=== PATIENT | male | born 1940 | race Caucasian/White ===

== ENCOUNTER 2019-11-22 08:26 | Inpatient (IN) | payer MEDICARE ==
[~2019-11-22] VITALS: Ht 172.7 cm; Wt 100.0 kg
[2019-11-22] VITALS (7 sets, daily range): BP systolic 95–116; BP diastolic 56–88; Ht 172.7 cm; Wt 100.0 kg
[2019-11-22] MEDS ORDERED: ZYLOPRIM100 MG PO (08:32)
[2019-11-22] MEDS ORDERED: ASPIRIN325 MG PO (08:33)
--- NOTE | 2019-11-22 08:45 | NUR ---
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
[2019-11-22 09:34] LABS: HEMATOCRIT 41.5 % (42.0-54.0); HEMOGLOBIN 13.8 g/dL (13.5-17.5); MCH 31.3 pg (26.0-34.0); MCHC 33.3 g/dL (31.0-37.0); MCV 94.1 fL (80.0-100.0); MEAN PLATELET VOLUME 8.8 fL (7.4-10.4); PLATELET COUNT 231 10x3/uL (130-400); RBC 4.41 10x6/uL (4.20-6.10); RDW 13.5 % (11.5-14.5)
[2019-11-22 09:40] LABS: APTT 27.2 SECONDS (22.8-39.4); CALC OSMOLALITY 286 mosm/kg (275-300); CALCIUM 9.3 mg/dL (8.5-10.1); CHLORIDE - SERUM 101 mmol/L (98-107); CREATININE - SERUM 1.6 mg/dL (0.6-1.3); GLUCOSE 198 mg/dL (74-106); INR 1.17 (0.85-1.17); POTASSIUM - SERUM 4.6 mmol/L (3.5-5.1); PROTIME 14.4 SECONDS (11.6-15.0); SODIUM 139 mmol/L (136-145); UREA NITROGEN 21 mg/dL (7-18); eGFR NON AFRICAN AMERICAN 44 mL/min (90-120)
--- NOTE | 2019-11-22 09:45 | NUR ---
LAB AT BS FOR 'S X2
[2019-11-22 09:55] LABS: ALBUMIN 3.5 g/dL (3.4-5.0); ALKALINE PHOSPHATASE 86 U/L (46-116); ALT (SGPT) 53 U/L (10-68); BILIRUBIN - TOTAL 0.94 mg/dL (0.2-1.3); CKMB 0.7 U/L (0.0-3.6); CREATINE KINASE 71 UL (21-232); PROTEIN - SERUM 6.6 g/dL (6.4-8.2)
[2019-11-22 09:56] LABS: TROPONIN-I < 0.017 ng/mL (0.000-0.060)
[2019-11-22 10:36] LABS: EOSINOPHILS 1 % (0-7); LYMPHOCYTES 11 % (15-50); MONOCYTES 9 % (2-11); NEUTROPHILS 77 % (40-80); PLATELET ESTIMATE NORMAL
--- NOTE | 2019-11-22 10:47 | NUR ---
REPORT CALLED TO NAS MARKS
--- NOTE | 2019-11-22 10:55 | NUR ---
TRANSPORTED TO ROOM #2223, CONDITION STABLE. AZITHROMYCIN INFUSING UPON TRANSPORT TO ROOM
--- NOTE | 2019-11-22 13:08 | NUR ---
RECEIVED PT FROM ER, PT IS ALERT AND ORIENTED, SPOUSE AT BEDSIDE, STATES PAIN IS AT A 9 WHERE RIBS ARE. BED IN LOWEST POSITION, CL IN REACH CONTINUE WITH PLAN OF CARE
--- NOTE | 2019-11-22 16:39 | NUR ---
ASSISTED PT TO RESTROOM, PT C/O PAIN ON LEFT LOWER SIDE TOWARDS BACK AREA, ENCOURAGED PT TO PUSH PAIN BUTTON WHEN GREEN. 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 PT IS 1M PERSON ASSIST. NO OTHER NEEDS VOICED NO SIGNS OF DISTRESS, CONTINUE WITH PLAN OF CARE
[2019-11-22 16:40] LABS: % SATURATION 19 % (15-55); IRON 57 ug/dl (35-150); TOTAL IRON BIND CAPACITY 294 ug/dl (260-445); UNSAT IRON BIND CAPACITY 237 ug/dl (150-375)
[2019-11-23 01:58] VITALS: BP 138/79
[2019-11-23 06:15] LABS: BASOPHILS 0 % (0-2); EOSINOPHILS 0 % (0-7); HEMATOCRIT 37.2 % (42.0-54.0); HEMOGLOBIN 12.3 g/dL (13.5-17.5); IMMATURE GRANULOCYTES 0.2 % (0-5); MCH 30.8 pg (26.0-34.0); MCHC 33.1 g/dL (31.0-37.0); MEAN PLATELET VOLUME 9.1 fL (7.4-10.4); NEUTROPHILS 88.8 % (40-80); PLATELET COUNT 185 10x3/uL (130-400); RDW 13.5 % (11.5-14.5); WBC 20.1 10x3/uL (4.8-10.8)
[2019-11-23 06:27] LABS: ALBUMIN 3.4 g/dL (3.4-5.0); ANION GAP 12.6 mmol/L (8-16); BILIRUBIN - TOTAL 0.58 mg/dL (0.2-1.3); CARBON DIOXIDE 26.2 mmol/L (21.0-32.0); CREATININE - SERUM 1.7 mg/dL (0.6-1.3); MAGNESIUM - SERUM 2.1 mg/dL (1.8-2.4); POTASSIUM - SERUM 4.8 mmol/L (3.5-5.1); PROTEIN - SERUM 6.3 g/dL (6.4-8.2)
--- NOTE | 2019-11-23 08:11 | NUR ---
ALERT AND ORIENTED. LUNGS DIMINISHED TO BLL. HEART SOUNDS S1 AND S2 HEARD IN ALL SMITH. BOWEL SOUNDS ACTIVE X 4. SKIN INTACT WITHOUT REDNESS. IV TO LEE PATENT WITHOUT REDNESS. DENIES NEEDS. BED LOW. FALL PRECAUTIONS IN PLACE. CALL REYES AND ITEMS IN REACH. WILL CONTINUE TO MONITOR.
[2019-11-23 08:16] LABS: APPEARANCE CLEAR (CLEAR); BILIRUBIN NEGATIVE (NEGATIVE); COLOR YELLOW (YELLOW); GLUCOSE NEGATIVE (NEGATIVE); KETONE MODERATE mg/dL (NEGATIVE); NITRITE NEGATIVE (NEGATIVE); PROTEIN NEGATIVE (NEGATIVE); SPECIFIC GRAVITY 1.025 (1.005-1.020); UROBILINOGEN NORMAL (NORMAL)
[2019-11-23 08:47] VITALS: BP 125/74
--- NOTE | 2019-11-23 09:53 | NUR ---
RESTING IN BED. AT BEDSIDE. WILL CONTINUE TO MONITOR.
--- NOTE | 2019-11-23 11:13 | NUR ---
BED ALARM REFUSAL SIGNED BY PATIENT. AT BEDSIDE. ALARM REMOVED FROM BED.
[2019-11-23 11:37] VITALS: BP 133/75
--- NOTE | 2019-11-23 13:56 | NUR ---
RESTING IN BED. AT BEDSIDE. WILL CONTINUE TO MONITOR.
[2019-11-23 17:29] VITALS: BP 119/80
--- NOTE | 2019-11-23 17:39 | NUR ---
FAMILY IN ROOM. PATIENT NOT HUNGRY. CL IN REACH. NO NEEDS AT THIS TIME.
[2019-11-24] VITALS: BP 123/62
--- NOTE | 2019-11-24 00:27 | NUR ---
PT RESTING IN BED. EYES CLOSED. NO SIGNS OF DISTRESS. BREATHING EVEN AND UNLABORED. IV SITE RT UPPER ARM SL. DRESSING CLEAN DRY AND INTACT. NO SIGNS OF INFECTION. AT BEDSIDE. 2LO2 NASAL CANNULA. LUNG SOUNDS DIMINISHED IN LT LOWER LUNG. LT SIDE LOWER BACK BRUISES. BOWEL SOUNDS ACTIVE. ABD DISTENDED. NO LOWER LEG SWELLING PRESENT. WILL CONTINUE PLAN OF CARE. CALL LIGHT IN REACH. BED LOWERED AND LOCKED. PT REFUSAL OF GIGI OR BED ALARM. YELLOW GOWN ON.
[2019-11-24 06:51] LABS: ANION GAP 10.7 mmol/L (8-16); CALCIUM 9.1 mg/dL (8.5-10.1); CARBON DIOXIDE 27.5 mmol/L (21.0-32.0); MAGNESIUM - SERUM 2.3 mg/dL (1.8-2.4); POTASSIUM - SERUM 4.2 mmol/L (3.5-5.1)
[2019-11-24 06:52] LABS: CREATININE - SERUM 1.2 mg/dL (0.6-1.3)
[2019-11-24 07:31] LABS: BASOPHILS 0.1 % (0-2); EOSINOPHILS 0.3 % (0-7); IMMATURE GRANULOCYTES 0.3 % (0-5); LYMPHOCYTES 6.1 % (15-50); MCH 31.3 pg (26.0-34.0); MCHC 33.3 g/dL (31.0-37.0); MEAN PLATELET VOLUME 9.1 fL (7.4-10.4); MONOCYTES 6.3 % (2-11); NEUTROPHILS 86.9 % (40-80); PLATELET COUNT 165 10x3/uL (130-400); RBC 3.51 10x6/uL (4.20-6.10); RDW 13.8 % (11.5-14.5); WBC 19.3 10x3/uL (4.8-10.8)
--- NOTE | 2019-11-24 07:50 | NUR ---
RESTING IN BED. REQUESTED AND GIVEN PAIN MEDICATION. ALERT AND ORIENTED. AT BEDSIDE. LUNGS CLEAR BILATERALLY. HEART SOUNDS S1 AND S2 HEARD IN ALL SMITH. BOWEL SOUNDS ACTIVE X 4. HAT IN TOILET FOR STOOL SAMPLE. SKIN INTACT WITHOUT REDNESS. IV PATENT TO LEE WITHOUT REDNESS. DENIES NEEDS. GIGI ALARM WAIVER ON CHART. BED LOW. CALL REYES AND PERSONAL ITEMS IN REACH. WILL CONTINUE TO MONITOR.
[2019-11-24 08:49] VITALS: BP 129/79
--- NOTE | 2019-11-24 09:38 | NUR ---
RESTING IN BED. DENIES NEEDS. AT BEDSIDE. WILL CONTINUE TO MONITOR.
[2019-11-24] MEDS ORDERED: ZITHROMAX500 MG PO (10:52)
[2019-11-24] MEDS ORDERED: PERCOCET 5-3251 TAB PO (11:40)
--- NOTE | 2019-11-24 11:47 | NUR ---
SPOKE WITH HERBER DAVEY TO GET PATIENT PAIN MEDICATION FOR DISCHARGE. STATES DR MARION WILL BE UP TO SIGN RX FOR DC.
--- NOTE | 2019-11-24 11:53 | NUR ---
IV REMOVED FROM LEE WITH TIP INTACT FOR DISCHARGE.
--- NOTE | 2019-11-24 12:30 | NUR ---
AT BACK DESK REPEATEDLY DEMANDING DISCHARGE PAPERWORK. INFORMED THAT DOCTOR HAS TO SIGN RX. STATES IS GOING TO CALL DOCTOR AND HER IS "FIT TO BE TIED."
--- NOTE | 2019-11-24 12:45 | NUR ---
BACK AT DESK DEMANDING DISCHARGE PAPERWORK. STATES WILL COME BACK AND GET PAIN RX LATER. [employer] CONSTRUCTION ESTIMATOR WORKING ON PAPERWORK.
--- NOTE | 2019-11-24 13:00 | NUR ---
PAIN RX SIGNED FOR DISCHARGE. DISCHARGE EDUCATION PROVIDED BOTH WRITTEN AND VERBAL. PATIENT AND VERBALIZED UNDERSTANDING AND DENY FURTHER QUESTIONS. IV PREVIOUSLY REMOVED. DENIES FURTHER NEEDS. PATIENT DISCHARGED HOME WITH ALL BELONGINGS AND RX FOR PAIN MEDICATION.
== END 2019-11-24 13:05 | disposition home or self-care (01) | DRG 183 ==
LOC: D.ER 08:26 → D.MS 10:02
PROVIDERS: Family Medicine; ADMIT Internal Medicine Nephrology; ATTEND Internal Medicine Nephrology
DX: S22.42XA Multiple fractures of ribs, left side, initial encounter for closed fracture (principal); J18.9 Pneumonia, unspecified organism; N17.9 Acute kidney failure, unspecified; W01.0XXA Fall on same level from slipping, tripping and stumbling without subsequent striking against object, initial encounter; Y92.009 Unspecified place in unspecified non-institutional (private) residence as the place of occurrence of the external cause; M19.90 Unspecified osteoarthritis, unspecified site; I10 Essential (primary) hypertension; D64.9 Anemia, unspecified; R73.9 Hyperglycemia, unspecified

== ENCOUNTER 2020-01-16 09:37 | Inpatient (IN) | payer MEDICARE ==
[~2020-01-16] VITALS: Ht 177.8 cm; Wt 87.1 kg
[~2020-01-16 09:37] MED LIST: ASPIRIN325 MG PO; PERCOCET 5-3251 TAB PO; ZITHROMAX500 MG PO; ZYLOPRIM100 MG PO
[2020-01-16 11:00] LABS: BASOPHILS 0.3 % (0-2); EOSINOPHILS 0.7 % (0-7); HEMATOCRIT 46.9 % (42.0-54.0); HEMOGLOBIN 16.4 g/dL (13.5-17.5); IMMATURE GRANULOCYTES 0.1 % (0-5); LYMPHOCYTES 18.3 % (15-50); MCH 32.3 pg (26.0-34.0); MCV 92.5 fL (80.0-100.0); MEAN PLATELET VOLUME 9.2 fL (7.4-10.4); MONOCYTES 10.5 % (2-11); NEUTROPHILS 70.1 % (40-80); PLATELET COUNT 179 10x3/uL (130-400); RBC 5.07 10x6/uL (4.20-6.10); RDW 13.3 % (11.5-14.5); WBC 8.8 10x3/uL (4.8-10.8)
[2020-01-16 11:12] LABS: INR 1.06 (0.85-1.17); PROTIME 13.7 SECONDS (11.6-15.0)
[2020-01-16 11:17] LABS: CALC OSMOLALITY 267 mosm/kg (275-300); CALCIUM 9.8 mg/dL (8.5-10.1); CARBON DIOXIDE 29.5 mmol/L (21.0-32.0); CHLORIDE - SERUM 99 mmol/L (98-107); CREATININE - SERUM 1.2 mg/dL (0.6-1.3); GLUCOSE 112 mg/dL (74-106); POTASSIUM - SERUM 4.1 mmol/L (3.5-5.1); SODIUM 133 mmol/L (136-145); UREA NITROGEN 14 mg/dL (7-18); eGFR NON AFRICAN AMERICAN 62 mL/min (90-120)
[2020-01-16 11:29] LABS: ALBUMIN 4.1 g/dL (3.4-5.0); ALKALINE PHOSPHATASE 88 U/L (30-120); ALT (SGPT) 35 U/L (10-68); BILIRUBIN - TOTAL 0.98 mg/dL (0.2-1.3); CREATINE KINASE 25 UL (21-232); MAGNESIUM - SERUM 2.2 mg/dL (1.8-2.4); PRO BNP 1506 pg/mL (0-450); PROTEIN - SERUM 7.2 g/dL (6.4-8.2); TROPONIN-I < 0.017 ng/mL (0.000-0.060)
[2020-01-16 11:46] LABS: APPEARANCE CLEAR (CLEAR); BACTERIA FEW /hpf (NEGATIVE); BILIRUBIN NEGATIVE (NEGATIVE); COLOR YELLOW (YELLOW); EPITHELIAL CELLS 0-5 /hpf (0-5); GLUCOSE NEGATIVE (NEGATIVE); KETONE NEGATIVE (NEGATIVE); NITRITE NEGATIVE (NEGATIVE); PROTEIN NEGATIVE (NEGATIVE); RED CELLS - URINE 0-5 /hpf (0-5); UROBILINOGEN NORMAL (NORMAL); WHITE CELLS - URINE RARE /hpf (NEGATIVE)
[2020-01-16 11:47] LABS: MUCUS <1+ /lpf (NONE SEEN)
[2020-01-16 14:04] VITALS: BP 135/86
--- NOTE | 2020-01-16 17:30 | NUR ---
TO ROOM 2240 FROM ER. ORIENTATION TO ROOM WITH PATIENT AND .FALL PREVENTION INITYIATED WITH GIGI,BUT PT REFUSES GIGI MAT. WAIVER SIGNED AND PLACED ON CHART.
[2020-01-16 18:44] VITALS: BP 147/91; BMI 27.6
[2020-01-16 21:25] VITALS: BP 118/86
[2020-01-17 01:00] VITALS: BP 131/90
[2020-01-17 05:22] VITALS: BP 178/98
[2020-01-17 05:33] LABS: BASOPHILS 0.3 % (0-2); EOSINOPHILS 1.5 % (0-7); HEMATOCRIT 40.9 % (42.0-54.0); HEMOGLOBIN 13.9 g/dL (13.5-17.5); IMMATURE GRANULOCYTES 0.3 % (0-5); LYMPHOCYTES 15.7 % (15-50); MCH 31.3 pg (26.0-34.0); MCV 92.1 fL (80.0-100.0); MONOCYTES 14.4 % (2-11); NEUTROPHILS 67.8 % (40-80); PLATELET COUNT 158 10x3/uL (130-400); RBC 4.44 10x6/uL (4.20-6.10); RDW 13.7 % (11.5-14.5); WBC 7.2 10x3/uL (4.8-10.8)
[2020-01-17 06:00] LABS: CALCIUM 9.1 mg/dL (8.5-10.1); CARBON DIOXIDE 27.3 mmol/L (21.0-32.0); CREATININE - SERUM 1.2 mg/dL (0.6-1.3); PHOSPHOROUS 3.3 mg/dL (2.5-4.9); POTASSIUM - SERUM 4.3 mmol/L (3.5-5.1)
--- NOTE | 2020-01-17 09:00 | NUR ---
ASSESSMENT PER FLOW SHEET. PT IS WITHOUT DISTRESS, MONITOR FOR NEEDS.CALL LIGHT IN REACH
[2020-01-17 09:33] VITALS: BP 147/93
[2020-01-17] MEDS ORDERED: TESSALON PERLE100 MG PO (14:29)
[2020-01-17] MEDS ORDERED: MUCINEX600 MG PO (14:29)
[2020-01-17] MEDS ORDERED: OMNICEF300 MG PO (14:30)
[2020-01-17] MEDS ORDERED: ZITHROMAX500 MG PO (14:31)
[2020-01-17 14:56] VITALS: Ht 177.8 cm; Wt 87.1 kg
--- NOTE | 2020-01-17 15:42 | NUR ---
DISCHARGE INSTRUCTIONS,STATES UNDERSTANDING. LEFT UNIT VIA WHEELCHAIR. PT PULLED IV OUT WITH CATH TIP INTACT
== END 2020-01-17 15:43 | disposition home or self-care (01) | DRG 194 ==
LOC: D.ER 09:37 → D.MS 11:40
PROVIDERS: Family Medicine; ADMIT Family Medicine; ATTEND Family Medicine
DX: J18.9 Pneumonia, unspecified organism (principal); E87.1 Hypo-osmolality and hyponatremia; I10 Essential (primary) hypertension; M10.9 Gout, unspecified; M19.90 Unspecified osteoarthritis, unspecified site

== ENCOUNTER → 2020-04-08 | Emergency (ER) | payer MEDICARE ==
[~2020-04-08] VITALS: Ht 177.8 cm; Wt 93.2 kg
[~2020-04-08] MED LIST changes: +MUCINEX600 MG PO; +OMNICEF300 MG PO; +TESSALON PERLE100 MG PO; +VITAMINS; +[UNRECOGNIZED DRUG - OTHER]
[2020-04-08 12:51] VITALS: Ht 177.8 cm; Wt 93.2 kg
[2020-04-08 13:37] LABS: HEMATOCRIT 46.8 % (42.0-54.0); HEMOGLOBIN 15.4 g/dL (13.5-17.5); LYMPHOCYTES 23.1 % (15-50); MCH 31.2 pg (26.0-34.0); MCHC 32.9 g/dL (31.0-37.0); MCV 94.9 fL (80.0-100.0); MEAN PLATELET VOLUME 8.7 fL (7.4-10.4); NEUTROPHILS 66.9 % (40-80); RBC 4.93 10x6/uL (4.20-6.10); RDW 15.5 % (11.5-14.5); WBC 7.1 10x3/uL (4.8-10.8)
[2020-04-08 13:38] LABS: PLATELET COUNT 236 10x3/uL (130-400)
[2020-04-08 13:49] LABS: APTT 29.8 SECONDS (22.8-39.4); CALC OSMOLALITY 274 mosm/kg (275-300); CALCIUM 9.5 mg/dL (8.5-10.1); CARBON DIOXIDE 29.7 mmol/L (21.0-32.0); CHLORIDE - SERUM 104 mmol/L (98-107); CREATININE - SERUM 1.3 mg/dL (0.6-1.3); GLUCOSE 106 mg/dL (74-106); INR 1.08 (0.85-1.17); POTASSIUM - SERUM 4.2 mmol/L (3.5-5.1); SODIUM 138 mmol/L (136-145); UREA NITROGEN 10 mg/dL (7-18); eGFR NON AFRICAN AMERICAN 56 mL/min (90-120)
[2020-04-08 13:50] LABS: D-DIMER-QUANTITATIVE 1.15 ug/mLFEU (0.20-0.54)
[2020-04-08 14:06] LABS: ALBUMIN 3.7 g/dL (3.4-5.0); ALKALINE PHOSPHATASE 60 U/L (30-120); ALT (SGPT) 31 U/L (10-68); BILIRUBIN - TOTAL 0.86 mg/dL (0.2-1.3); CKMB 0.7 U/L (0.0-3.6); CREATINE KINASE 31 UL (21-232); PRO BNP 325 pg/mL (0-450); PROTEIN - SERUM 6.6 g/dL (6.4-8.2); TROPONIN-I < 0.017 ng/mL (0.000-0.060)
[2020-04-08 14:30] VITALS: BP 150/93
== END ==
LOC: D.ER 12:44
PROVIDERS: Family Medicine
DX: R06.02 Shortness of breath (principal); R25.1 Tremor, unspecified; R79.89 Other specified abnormal findings of blood chemistry; I10 Essential (primary) hypertension